=== PATIENT | female | born 1980 | race Caucasian/White ===

== ENCOUNTER → 2019-03-10 08:35 | Outpatient (CLI) | payer OTHER, SELFPAY ==
--- NOTE | 2019-03-10 | DI.US.S_ITS ---
LIMITED ULTRASOUND OF LEFT BREAST: 03/10/2019 CLINICAL: Left breast occasional palpable painful lump. Comparison is made to exams dated: 03/10/2019 mammogram and 04/04/2002 mammogram - [facility]. Color flow and real-time ultrasound of the left breast 5 o'clock region were performed. Erickson scale images of the real-time examination were reviewed. Targeted ultrasound was performed in the region of the patient's reported occasional painful palpable area of concern in the lower left breast near 5:00 position. There is dense benign-appearing fibroglandular tissue. No other underlying breast mass or abnormality is identified. IMPRESSION: BENIGN 1) Dense benign-appearing fibroglandular tissue of the lower left breast near 5:00 position. No other ultrasound findings to explain patient's reported occasional painful palpable area of concern in the lower left breast near 5:00 position. Recommend clinical follow-up for further evaluation and management of the patient's reported symptoms. 2) There is no sonographic evidence of malignancy in the imaged areas of the left breast. Return to annual screening mammography schedule is recommended. The patient is advised to monitor her breasts and to return sooner for re-evaluation should she feel anything grow or change. This exam was interpreted at Station ID: [id number]. Electronically Signed By: Harvey Vuong M.D. ecl/:03/10/2019 09:58:18 letter sent: Clinical Evaluation Ultrasound BI-RADS: 2 Benign
--- NOTE | 2019-03-10 | DI.MG.S_ITS ---
BILATERAL DIGITAL DIAGNOSTIC MAMMOGRAM 3D/2D: 03/10/2019 CLINICAL: Occasional palpable painful left breast mass per patient. Patient reports a history of heart surgery leading to scarring of the right breast. Comparison is made to exam dated: 04/04/2002 [facility]. The tissue of both breasts is extremely dense, which lowers the sensitivity of mammography. Patient reports an occasional painful palpable mass of the left breast. There is no underlying correlating left breast mammographic mass or abnormality. There are bilateral linear scar markers. There is underlying breast scarring. There are small bilateral vascular calcifications along the blood vessels, best seen on tomosynthesis views. No suspicious masses, calcifications, or other findings are seen in either breast. IMPRESSION: INCOMPLETE: NEEDS ADDITIONAL IMAGING EVALUATION No mammographic abnormality to correlate with the patient's reported occasional painful palpable mass of the left breast. Targeted diagnostic ultrasound recommended for further evaluation, which will be performed immediately following this exam. This exam was interpreted at Station ID: [id number]. NOTE: For mammograms, a report in lay terms will be sent to the patient. Approximately 15% of breast malignancies will not be visualized mammographically. In the management of a palpable breast mass, a negative mammogram must not discourage biopsy of a clinically suspicious lesion. Electronically Signed By: Harvey Vuong M.D. ecl/:03/10/2019 09:36:33 ACR BI-RADS Category 0: Incomplete [id number]
== END ==
PROVIDERS: Family Provider Family Medicine; PCP Family Medicine; Visit Provider Family Medicine
DX: R92.8 Other abnormal and inconclusive findings on diagnostic imaging of breast (principal); N64.4 Mastodynia; N63.23 Unspecified lump in the left breast, lower outer quadrant
CPT/HCPCS: 76642; 77066; G0279

== ENCOUNTER → 2021-03-15 09:03 | Outpatient (CLI) | payer OTHER, SELFPAY ==
--- NOTE | 2021-03-15 | DI.MG.S_ITS ---
BILATERAL DIGITAL SCREENING MAMMOGRAM 3D/2D WITH CAD: 03/15/2021 CLINICAL: Routine screening. Family history of breast cancer. Comparison is made to exams dated: 03/10/2019 ultrasound, 03/10/2019 mammogram, and 04/04/2002 mammogram - [facility]. The tissue of both breasts is extremely dense, which lowers the sensitivity of mammography. Current study was also evaluated with a Computer Aided Detection (CAD) system. There is a 0.8 cm x 0.6 cm mass in the left breast at 4 o'clock middle depth 6.4 cm from the nipple. No other significant masses, calcifications, or other findings are seen in either breast. IMPRESSION: INCOMPLETE: NEEDS ADDITIONAL IMAGING EVALUATION The 0.8 cm x 0.6 cm mass in the left breast is indeterminate. A diagnostic mammogram and ultrasound is recommended. This exam was interpreted at Station ID: [id number]. NOTE: For mammograms, a report in lay terms will be sent to the patient. Approximately 15% of breast malignancies will not be visualized mammographically. In the management of a palpable breast mass, a negative mammogram must not discourage biopsy of a clinically suspicious lesion. Electronically Signed By: Steve Edmonds M.D., jr/keanu:03/15/2021 10:41:20 letter sent: Additional Imaging Needed ACR BI-RADS Category 0: Incomplete 3340F
== END ==
PROVIDERS: Family Provider Family Medicine; PCP Family Medicine; Referring Provider Family Medicine; Visit Provider Family Medicine
DX: Z12.31 Encounter for screening mammogram for malignant neoplasm of breast (principal); Z80.3 Family history of malignant neoplasm of breast
CPT/HCPCS: 77063; 77067

== ENCOUNTER → 2021-04-05 08:29 | Outpatient (CLI) | payer OTHER, SELFPAY | PROVIDERS: Family Provider Family Medicine; PCP Family Medicine; Referring Provider Family Medicine; Visit Provider Family Medicine | DX: R92.8 Other abnormal and inconclusive findings on diagnostic imaging of breast (principal) ==

== ENCOUNTER → 2021-04-05 08:31 | Outpatient (CLI) | payer OTHER, SELFPAY ==
--- NOTE | 2021-04-05 | DI.US.S_ITS ---
LIMITED ULTRASOUND OF LEFT BREAST AND AXILLA: 04/05/2021 CLINICAL: Patient returns today to evaluate a focal asymmetry in the left breast. Comparison is made to exams dated: 04/05/2021 mammogram, 03/15/2021 mammogram, 03/10/2019 ultrasound, 03/10/2019 mammogram, and 04/04/2002 mammogram - [facility]. Color flow and real-time ultrasound of the left breast 1-2 o'clock, and axilla regions were performed on the areas of interest. There is a 0.8 cm x 0.4 cm x 0.8 cm oval mass with an indistinct and circumscribed margin in the left breast at 2 o'clock middle depth 8 cm from the nipple. This oval mass is hypoechoic but of mixed echogenicity. This correlates with mammography findings. Color flow imaging demonstrates that there is an adjacent vascularity. No suspicious enlarged lymph nodes were seen sonographically in the axilla. IMPRESSION: SUSPICIOUS OF MALIGNANCY The 0.8 cm x 0.4 cm x 0.8 cm oval mass in the left breast resembles a fibroadenoma. However, malignancy is not excluded and given patient's increased risk for breast cancer, an ultrasound guided biopsy is recommended. The findings were discussed with the patient at the conclusion of the study by Dr. Edmonds. This exam was interpreted at Station ID: [id number]. Electronically Signed By: Yaya Patel M.D. [email or web address]/:04/05/2021 10:52:56 letter sent: Biopsy Required Ultrasound BI-RADS: 4 Suspicious for malignancy
--- NOTE | 2021-04-05 | DI.MG.S_ITS ---
UNILATERAL LEFT DIGITAL DIAGNOSTIC MAMMOGRAM 3D/2D WITH ADDITIONAL VIEWS: 04/05/2021 CLINICAL: Additional evaluation requested from prior study. Comparison is made to exams dated: 03/15/2021 mammogram, 03/10/2019 mammogram, and 04/04/2002 mammogram - [facility]. The tissue of left breast is extremely dense, which lowers the sensitivity of mammography. There is an oval low density mass with an obscured and circumscribed margin in the left breast at 2 o'clock middle depth. No other significant masses or calcifications are seen in the breast. IMPRESSION: INCOMPLETE: NEEDS ADDITIONAL IMAGING EVALUATION The oval low density mass in the left breast is indeterminate. An ultrasound is recommended. Ultrasound will be performed immediately following the current exam. This exam was interpreted at Station ID: [id number]. NOTE: For mammograms, a report in lay terms will be sent to the patient. Approximately 15% of breast malignancies will not be visualized mammographically. In the management of a palpable breast mass, a negative mammogram must not discourage biopsy of a clinically suspicious lesion. Electronically Signed By: Yaya Patel M.D. [email or web address]/:04/05/2021 09:23:26 ACR BI-RADS Category 0: Incomplete 3340F
--- NOTE | 2021-04-05 | DI.US.S_ITS ---
PROCEDURE: US PELVIC COMPLETE INDICATIONS: LOST IUD STRINGS TECHNIQUE: Real-time scanning was performed of the pelvic organs, with image documentation. Additional endovaginal scanning was necessary due to incomplete visualization of the adnexal and endometrial structures by transabdominal scanning. COMPARISON: [facility], , PELVIC COMPLETE, 03/31/2014, 11:41. FINDINGS: Uterus: Uterus is normal in size at 7.8 x 3.5 x 4.3 cm. The uterus is anteverted and demonstrates normal echotexture. The endometrium measures 4.5 mm in combined thickness. The IUD is seen at its expected location. Ovaries: Neither ovary can be seen. No adnexal masses are seen on either side. Other: No pathologic free abdominal or pelvic fluid. IMPRESSION: The IUD is seen at its expected location. Dictated by: Fabricio Epstein M.D. on 04/05/2021 at 9:47 Approved by: Fabricio Epstein M.D. on 04/05/2021 at 9:47
== END ==
PROVIDERS: Family Provider Family Medicine; PCP Family Medicine; Referring Provider Family Medicine; Visit Provider Family Medicine
DX: N63.21 Unspecified lump in the left breast, upper outer quadrant (principal); R92.8 Other abnormal and inconclusive findings on diagnostic imaging of breast; T83.32XA Displacement of intrauterine contraceptive device, initial encounter
CPT/HCPCS: 76642; 76856; 77065; G0279

== ENCOUNTER → 2021-04-19 08:51 | Outpatient (CLI) | payer OTHER, SELFPAY ==
--- NOTE | 2021-04-19 | DI.MG.S_ITS ---
UNILATERAL LEFT DIGITAL DIAGNOSTIC MAMMOGRAM 3D/2D POST-NEEDLE BIOPSY: 04/19/2021 CLINICAL: Left breast abnormality. Comparison is made to exams dated: 04/05/2021 ultrasound, 04/05/2021 mammogram, and 03/15/2021 mammogram - [facility]. The tissue of left breast is extremely dense, which lowers the sensitivity of mammography. There is a marker clip in the appropriate position in the left breast at 1 o'clock .This marker clip placement is at the biopsy site. IMPRESSION: POST PROCEDURE MAMMOGRAM FOR MARKER PLACEMENT There was a successful marker clip placement in the left breast . This exam was interpreted at Station ID: [id number]. NOTE: For mammograms, a report in lay terms will be sent to the patient. Approximately 15% of breast malignancies will not be visualized mammographically. In the management of a palpable breast mass, a negative mammogram must not discourage biopsy of a clinically suspicious lesion. Electronically Signed By: Simba agudelo/:04/19/2021 15:36:45 ACR BI-RADS Category Post-procedure mammogram for marker placement
--- NOTE | 2021-04-19 | DI.US.S_ITS ---
ULTRASOUND GUIDED BIOPSY LEFT BREAST USING VACUUM DEVICE WITH MARKING DEVICE INSERTED: 04/19/2021 CLINICAL: Left breast mass. PATIENT CONSENT: Risks (minor bleeding, infection, vasovagal reaction and repeat procedure), benefits and alternatives were explained to the patient and written informed consent was obtained. Correlation is made to exams dated: 04/19/2021 mammogram, 04/05/2021 ultrasound, 04/05/2021 mammogram, 03/15/2021 mammogram, 03/10/2019 ultrasound, and 04/04/2002 mammogram - [facility]. An ultrasound guided biopsy using real-time ultrasound was performed for the mass located in the left breast at 1 o'clock posterior depth. The skin was prepped in the usual manner. Local anesthetic was administered to the access site. A small incision was made in the breast. The abnormality was approached from the lateral aspect. A biopsy needle was placed adjacent to the abnormality under ultrasound guidance. Once the needle was documented to be in the correct location, eight specimens were obtained using the Mammotome biopsy system. The patient received additional local anesthetic during the procedure. A clip was inserted into the biopsy cavity. The specimens were sent to the laboratory for pathological analysis. IMPRESSION: ULTRASOUND GUIDED BIOPSY BENIGN Ultrasound guided biopsy of the mass in the left breast at 1 o'clock was successful. This exam was interpreted at Station ID: [id number]. Pathology indicates fragments of circumscribed fibroadenomatoid change with myxoid background as well as background breast parenchyma with focal adenosis, columnar cell change, and stromal fibrosis with micro-calcifications present. Pathology results are concordant with mammography and ultrasound findings. Negative for atypia, carcinoma in situ or malignancy. A follow-up ultrasound in 6 months is recommended to demonstrate stability. This exam was interpreted at Station ID: [id number]. Simba agudelo,ddp/:04/25/2021 15:05:02
--- NOTE | 2021-04-19 | PATH_ITS ---
[facility] Accession Number: [id number] . 01 Material submitted: . breast - LEFT BREAST MASS 1:30 8CMFN . 02 Diagnosis: Left Breast Mass, 1:30 o'clock, 8 cm from the Nipple, Biopsy: Fragments of circumscribed fibroadenomatous change with myxoid background, cystic duct dilatation and columnar cell change/columnar cell hyperplasia. Background breast parenchyma with focal adenosis, stromal fibrosis, and associated focal microcalcifications. Negative for atypia, carcinoma in situ, and malignancy. . . COMMENT: Clinical and radiographic correlation is necessary. [facility] 04/22/2021 1432 Local . 02 Electronically signed: . Radha Jang MD, Pathologist NPI- [id number] . 01 Gross description: . Received one formalin-filled container labeled with the patient's name and designated left breast mass 138 cm FN. The specimen is received with plastic filter in container, sample loose in container, and consists of multiple light yellow-aguilera portions of tissue which range in size from less than 0.1 cm to 0.7 x 0.2 x 0.2 cm. The specimen is filtered. All fragments are totally submitted in one cassette. Possible collection date and time per requisition 04/19/2021 at 1008. Total fixation time approximately 17 hours. ([facility]:[id number]) /[facility] 04/19/2021 1852 Local . 02 Pathologist provided ICD-10: N63.20 . 02 CPT . 131492 Performed at: 01 [facility] [address] [facility], [place], [place] [id number] MD Yaya Arteaga MD Phone: [phone] Performed at: 02 [facility] [address] [place] [id number] MD Aide Mckeon MD Phone: [phone]
== END ==
PROVIDERS: Family Provider Family Medicine; PCP Family Medicine; Referring Provider Family Medicine; Visit Provider Family Medicine
DX: N60.22 Fibroadenosis of left breast (principal); N60.32 Fibrosclerosis of left breast
CPT/HCPCS: 19083; 77065

== ENCOUNTER → 2021-07-11 12:21 | Outpatient (CLI) | payer OTHER, SELFPAY ==
--- NOTE | 2021-07-11 12:26 | DI.RAD.S_ITS ---
PROCEDURE: XR KNEE RT 3V INDICATIONS: RIGHT KNEE PAIN TECHNIQUE: 3 views of the knee were acquired. COMPARISON: None. FINDINGS: Bones: No fractures or dislocations. No suspicious bony lesions. Mild patellofemoral and medial compartment osteoarthritis. Soft tissues: No joint effusion. No suspicious soft tissue calcifications. IMPRESSION: Mild patellofemoral medial compartment right knee osteoarthritis. Dictated by: Mary Moore MD, PhD on 07/11/2021 at 16:55 Approved by: Mary Moore MD, PhD on 07/11/2021 at 16:56
== END ==
PROVIDERS: Family Provider Family Medicine; PCP Family Medicine; Referring Provider Family Medicine; Visit Provider Family Medicine
DX: S80.01XA Contusion of right knee, initial encounter (principal); M25.561 Pain in right knee; M17.11 Unilateral primary osteoarthritis, right knee
CPT/HCPCS: 73562

== ENCOUNTER → 2021-08-03 15:24 | Outpatient (CLI) | payer OTHER, SELFPAY ==
--- NOTE | 2021-08-03 | DI.RAD.S_ITS ---
PROCEDURE: XR ELBOW RT MIN 3V INDICATIONS: elbow pain TECHNIQUE: 3 views of the elbow were acquired. COMPARISON: None. FINDINGS: Bones: No fractures or dislocations. No suspicious bony lesions. Soft tissues: No elbow joint effusion. No suspicious soft tissue calcifications. IMPRESSION: No acute elbow fracture or dislocation. No significant joint effusion. Dictated by: Roque Garza M.D. on 08/03/2021 at 16:12 Approved by: Roque Garza M.D. on 08/03/2021 at 16:13
== END ==
PROVIDERS: Family Provider Family Medicine; PCP Family Medicine; Referring Provider Family Medicine; Visit Provider Family Medicine
DX: M25.521 Pain in right elbow (principal)
CPT/HCPCS: 73080

== ENCOUNTER → 2021-08-08 09:45 | Outpatient (CLI) | payer OTHER, SELFPAY ==
--- NOTE | 2021-08-08 | DI.MRI.S_ITS ---
PROCEDURE: MR KNEE RT WO CON INDICATIONS: Contusion of right knee, subsequent encounter TECHNIQUE: Noncontrast sagittal PD fast spin echo and T2 fast spin echo with fat saturation, sagittal 3-D FLASH with fat saturation; coronal T1 spin echo and PD fast spin echo with fat saturation, and axial PD fast spin echo with fat saturation through the knee. COMPARISON: [facility], CR, XR KNEE RT 3V, 07/11/2021, 12:16. FINDINGS: Image quality: Excellent. Menisci: The medial and lateral menisci demonstrate normal morphology and internal signal. The meniscal root ligaments appear intact. Cruciate ligaments: The anterior and posterior cruciate ligaments appear intact. Medial structures: The medial collateral ligament appears intact. Visualized portions of the pes anserinus tendons appear normal. No abnormal bursal fluid. Lateral structures: The lateral collateral ligament, long and short heads of the biceps femoris tendon appear intact. The popliteus tendon appears normal; the popliteofibular ligament appears intact. The posterosuperior and anteroinferior popliteomeniscal fascicles appear intact. The arcuate and fabellofibular ligaments appear intact, on either side of the lateral inferior geniculate artery. Iliotibial band appears normal. Anterior structures: The quadriceps and patellar tendons appear intact. Patellar alignment is normal. No femoral trochlear dysplasia or ventral trochlear prominence. No edema in the infrapatellar fat pad. Bones and cartilage: No bone marrow contusions or fractures. The cartilage of the medial and lateral femorotibial compartments, as well as the patellofemoral compartment, appears normal in thickness. Joint space: There is physiologic knee joint fluid. Trace Blackburn's cyst. Normal appearing synovial plicae are incidentally noted. IMPRESSION: 1. No significant abnormality. Dictated by: Gregorio Rowe M.D. on 08/08/2021 at 10:48 Approved by: Gregorio Rowe M.D. on 08/08/2021 at 11:05
== END ==
PROVIDERS: Family Provider Family Medicine; PCP Family Medicine; Referring Provider Family Medicine; Visit Provider Family Medicine
DX: S80.01XD Contusion of right knee, subsequent encounter (principal); M23.90 Unspecified internal derangement of unspecified knee
CPT/HCPCS: 73721

== ENCOUNTER → 2021-11-09 13:38 | Outpatient (CLI) | payer OTHER, SELFPAY ==
--- NOTE | 2021-11-09 | DI.MG.S_ITS ---
UNILATERAL LEFT DIGITAL DIAGNOSTIC MAMMOGRAM 3D/2D: 11/09/2021 CLINICAL: Short term follow up for the left breast. Comparison is made to exams dated: 04/19/2021 ultrasound biopsy, 04/19/2021 mammogram, 04/05/2021 ultrasound, 04/05/2021 mammogram, and 03/15/2021 mammogram - [facility]. The tissue of left breast is heterogeneously dense. This may lower the sensitivity of mammography. There are benign calcifications in the left breast. There also is a biopsy clip in the left breast. No significant masses, calcifications, or other findings are seen in the breast. There has been no significant interval change. IMPRESSION: BENIGN There is no mammographic evidence of malignancy. Return to annual mammogram screening schedule is recommended. This exam was interpreted at Station ID: Unknown. NOTE: For mammograms, a report in lay terms will be sent to the patient. Approximately 15% of breast malignancies will not be visualized mammographically. In the management of a palpable breast mass, a negative mammogram must not discourage biopsy of a clinically suspicious lesion. Electronically Signed By: Steve Edmonds M.D., jr/keanu:11/09/2021 14:11:31 Entry: - 11/10/2021 10:10:46 letter sent: Normal Exam ACR BI-RADS Category 2: Benign Finding(s) 3342F
== END ==
PROVIDERS: Family Provider Family Medicine; PCP Family Medicine; Referring Provider Family Medicine; Visit Provider Family Medicine
DX: R92.8 Other abnormal and inconclusive findings on diagnostic imaging of breast (principal)
CPT/HCPCS: 77065; G0279

== ENCOUNTER → 2022-05-03 12:42 | Outpatient (CLI) | payer OTHER, SELFPAY ==
--- NOTE | 2022-05-03 | DI.RAD.S_ITS ---
PROCEDURE: XR WRIST LT MIN 3V INDICATIONS: Pain in left wrist TECHNIQUE: 3 views of the wrist were acquired. COMPARISON: None. FINDINGS: Bones: No fractures or dislocations. No suspicious bony lesions. Scaphoid view: Normal Soft tissues: No suspicious soft tissue calcifications. IMPRESSION: Normal left wrist Dictated by: Aureliano Richter M.D. on 05/03/2022 at 13:51 Approved by: Aureliano Richter M.D. on 05/03/2022 at 13:52
== END ==
PROVIDERS: Family Provider Family Medicine; PCP Family Medicine; Referring Provider Family Medicine; Visit Provider Family Medicine
DX: M25.532 Pain in left wrist (principal)
CPT/HCPCS: 73110

== ENCOUNTER → 2022-07-25 09:04 | Outpatient (CLI) | payer OTHER, SELFPAY ==
--- NOTE | 2022-07-25 | DI.MG.S_ITS ---
BILATERAL DIGITAL SCREENING MAMMOGRAM 3D/2D WITH CAD: 07/25/2022 CLINICAL: Routine screening. Family history of breast cancer. Comparison is made to exams dated: 11/09/2021 mammogram, 04/19/2021 mammogram, 04/05/2021 mammogram, 03/15/2021 mammogram, 03/10/2019 mammogram, and 04/04/2002 mammogram - [facility]. Both breasts are heterogeneously dense, which may obscure small masses (category c / 51-75% glandular tissue). Current study was also evaluated with a Computer Aided Detection (CAD) system. There are benign calcifications in the left breast. There also is a biopsy clip in the left breast. No significant masses, calcifications, or other findings are seen in either breast. There has been no significant interval change. IMPRESSION: BENIGN There is no mammographic evidence of malignancy. A 1 year screening mammogram is recommended. Based on the Tyrer Cuzick model (a risk assessment model) the patient's lifetime risk is 14.7% and her 10 year risk is 2.2%. According to the ACR, ACS, and NCCN guidelines, an annual breast MRI exam along with mammogram is recommended if the patient's lifetime risk is 20% or greater. This exam was interpreted at Station ID: [id number]. NOTE: For mammograms, a report in lay terms will be sent to the patient. Approximately 15% of breast malignancies will not be visualized mammographically. In the management of a palpable breast mass, a negative mammogram must not discourage biopsy of a clinically suspicious lesion. Electronically Signed By: Steve Edmonds M.D., jr/keanu:07/25/2022 12:57:33 letter sent: Normal Exam ACR BI-RADS Category 2: Benign Finding(s) 3342F
== END ==
PROVIDERS: Family Provider Family Medicine; PCP Family Medicine; Referring Provider Family Medicine; Visit Provider Family Medicine
DX: Z12.31 Encounter for screening mammogram for malignant neoplasm of breast (principal); Z80.3 Family history of malignant neoplasm of breast
CPT/HCPCS: 77063; 77067

== ENCOUNTER → 2023-01-01 15:35 | Outpatient (CLI) | payer OTHER, SELFPAY ==
--- NOTE | 2023-01-01 15:40 | DI.RAD.S_ITS ---
PROCEDURE: XR WRIST LT MIN 3V INDICATIONS: pain in left elbow and wrist TECHNIQUE: 4 views of the wrist were acquired. COMPARISON: [facility], CR, XR WRIST LT MIN 3V, 05/03/2022, 12:56. FINDINGS: Bones: No fractures or dislocations. No suspicious bony lesions. Mild osteoarthritic changes at the 1st carpometacarpal joint and triscaphe joint. Scaphoid view: Scaphoid appears intact. Soft tissues: No suspicious soft tissue calcifications. IMPRESSION: 1. No acute osseous abnormality. 2. Mild osteoarthritis. Dictated by: Dustin Daniel M.D. on 01/01/2023 at 16:51 Approved by: Dustin Daniel M.D. on 01/01/2023 at 16:52
--- NOTE | 2023-01-01 15:40 | DI.RAD.S_ITS ---
PROCEDURE: XR ELBOW LT 2V INDICATIONS: pain in left elbow and wrist TECHNIQUE: 3 views of the elbow were acquired. COMPARISON: None. FINDINGS: Bones: No fractures or dislocations. No suspicious bony lesions. Soft tissues: No elbow joint effusion. No suspicious soft tissue calcifications. IMPRESSION: 1. No acute osseous abnormality. If clinical symptoms persist or clinical suspicion for pathology is high, a repeat examination in 7-10 days, or advanced imaging such as CT or MRI is suggested for further evaluation. Dictated by: Dustin Daniel M.D. on 01/01/2023 at 16:52 Approved by: Dustin Daniel M.D. on 01/01/2023 at 16:53
== END ==
PROVIDERS: Family Provider Family Medicine; PCP Family Medicine; Referring Provider Family Medicine; Visit Provider Family Medicine
DX: M19.032 Primary osteoarthritis, left wrist (principal); M25.522 Pain in left elbow; M25.532 Pain in left wrist
CPT/HCPCS: 73070; 73110

== ENCOUNTER → 2023-03-05 09:46 | Outpatient (CLI) | payer OTHER, SELFPAY ==
--- NOTE | 2023-03-05 | DI.US.S_ITS ---
PROCEDURE: US ABDOMEN COMPLETE INDICATIONS: UNSPECIFIED ABDOMINAL PAIN TECHNIQUE: Real-time scanning was performed of the abdominal and retroperitoneal organs, with image documentation. COMPARISON: None. FINDINGS: Liver: The liver demonstrates mildly enlarged size. The liver demonstrates generalized moderately increased echogenicity. This decreases ultrasound sensitivity for detection of hepatic masses. The main portal vein demonstrates normal size and demonstrates normal appearing, hepatopetal flow. Gallbladder: No findings of gallstones or sludge are seen. The gallbladder wall is not thickened, measuring 3 mm or less. No specific pericholecystic fluid is seen. The sonographic sign is negative. Biliary ducts: Intrahepatic bile ducts are non-dilated. Extrahepatic bile duct caliber measures 5 mm. Normal is 6-7 mm or less in diameter, or 10 mm or less post-cholecystectomy. Pancreas: Visualized portions of the pancreas are sonographically normal. Spleen: Spleen is normal in size and homogeneous in echotexture. Kidneys: Kidneys are normal in size and echotexture. Right kidney measures 9.2 cm long; left kidney measures 9.5 cm long. No hydronephrosis or nephrolithiasis. No solid masses. Aorta: Visualized aorta is normal in caliber at less than 3 cm. Iliacs: Proximal common iliac arteries are normal in caliber at less than 2.5 cm. IVC: Intrahepatic inferior vena cava is patent. Miscellaneous: No free abdominal fluid. This study is limited by body habitus. IMPRESSION: The gallbladder demonstrates a normal sonographic appearance. No biliary dilatation is seen. Enlarged, fatty liver. Dictated by: Fabricio Epstein M.D. on 03/05/2023 at 15:08 Approved by: Fabricio Epstein M.D. on 03/05/2023 at 15:13
== END ==
PROVIDERS: Family Provider Family Medicine; PCP Family Medicine; Referring Provider Family Medicine; Visit Provider Family Medicine
DX: R74.8 Abnormal levels of other serum enzymes (principal); R10.9 Unspecified abdominal pain; K76.0 Fatty (change of) liver, not elsewhere classified
CPT/HCPCS: 76700

== ENCOUNTER → 2024-06-24 16:47 | Outpatient (CLI) | payer OTHER, SELFPAY ==
--- NOTE | 2024-06-24 16:48 | DI.MG.S_ITS ---
BILATERAL DIGITAL SCREENING MAMMOGRAM 3D/2D WITH CAD: 06/24/2024 CLINICAL: Routine screening. Family history of breast cancer. Comparison is made to exams dated: 07/25/2022 mammogram, 03/15/2021 mammogram, 03/10/2019 mammogram, and 11/09/2021 mammogram - [facility]. The breasts are heterogeneously dense, which may obscure small masses (category c / 51-75% glandular tissue). Current study was also evaluated with a Computer Aided Detection (CAD) system. There are benign calcifications in the left breast. There also is a biopsy clip in the left breast. No significant masses, calcifications, or other findings are seen in either breast. There has been no significant interval change. IMPRESSION: BENIGN There is no mammographic evidence of malignancy. A 1 year screening mammogram is recommended. Based on the Tyrer Cuzick model (a risk assessment model) the patient's lifetime risk is 14.6% and her 10 year risk is 2.5%. According to the ACR, ACS, and NCCN guidelines, an annual breast MRI exam along with mammogram is recommended if the patient's lifetime risk is 20% or greater. This exam was interpreted at Station ID: [id number]. NOTE: For mammograms, a report in lay terms will be sent to the patient. Approximately 15% of breast malignancies will not be visualized mammographically. In the management of a palpable breast mass, a negative mammogram must not discourage biopsy of a clinically suspicious lesion. Electronically Signed By: Andrew [email or web address]/[email or web address]:06/25/2024 11:17:56 letter sent: Normal Exam ACR BI-RADS Category 2: Benign
== END ==
LOC: MAMMO 16:48
PROVIDERS: Family Provider Family Medicine; PCP Family Medicine; Referring Provider Family Medicine; Visit Provider Family Medicine
DX: Z12.31 Encounter for screening mammogram for malignant neoplasm of breast (principal); Z80.3 Family history of malignant neoplasm of breast
CPT/HCPCS: 77063; 77067

== ENCOUNTER → 2024-06-28 11:11 | Outpatient (CLI) | payer OTHER, SELFPAY | PROVIDERS: Family Provider Family Medicine; PCP Family Medicine; Visit Provider Registered Nurse | DX: R30.0 Dysuria (principal) | CPT/HCPCS: 87086 ==

== ENCOUNTER → 2024-12-23 12:43 | Outpatient (CLI) | payer OTHER, SELFPAY ==
--- NOTE | 2024-12-23 12:49 | DI.RAD.S_ITS ---
PROCEDURE: XR SHOULDER RT MIN 2V INDICATIONS: Pain in right shoulder TECHNIQUE: To views of the shoulder were acquired. COMPARISON: None. FINDINGS: Bones: No fractures or dislocations. No suspicious bony lesions. Visualized ribs appear intact. Soft tissues: No suspicious soft tissue calcifications. IMPRESSION: No acute bony abnormality. Dictated by: Francisco J Boss M.D. on 12/25/2024 at 5:58 Approved by: Francisco J Boss M.D. on 12/25/2024 at 5:58
== END ==
LOC: RAD 12:47
PROVIDERS: Family Provider Family Medicine; PCP Family Medicine; Referring Provider Family Medicine; Visit Provider Family Medicine
DX: M25.511 Pain in right shoulder (principal); G89.29 Other chronic pain
CPT/HCPCS: 73030